=== PATIENT | male | born 2000 | race Caucasian/White ===

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

== ENCOUNTER 2021-04-22 17:21 | Emergency (ER) | payer OTHER | END 2021-04-22 18:30 | disposition left against medical advice (07) | LOC: ER1 17:21 | DX: Z53.21 Procedure and treatment not carried out due to patient leaving prior to being seen by health care provider (principal) | CPT/HCPCS: 93005 ==

== ENCOUNTER 2021-04-22 19:21 | Emergency (ER) | payer OTHER ==
[2021-04-22 20:35] LABS: HEMOGLOBIN 15.7 gm/dl (14.0-17.5); RED BLOOD COUNT 5.46 M/UL (4.20-5.50); WHITE BLOOD COUNT 7.1 K/UL (4.5-11.0)
[2021-04-22 20:57] LABS: BUN/CREATININE RATIO 14 (0-10)
== END 2021-04-22 22:30 | disposition home or self-care (01) ==
LOC: ER1 19:21
PROVIDERS: Physician Assistant
DX: R07.9 Chest pain, unspecified (principal); R10.9 Unspecified abdominal pain; R06.02 Shortness of breath; R11.2 Nausea with vomiting, unspecified; R19.7 Diarrhea, unspecified
CPT/HCPCS: 71045; 80053; 82550; 82553; 83874; 84484; 85025; 99285

== ENCOUNTER 2021-04-24 11:26 | Emergency (ER) | payer OTHER ==
[2021-04-24] MEDS ORDERED: VISTARIL 50 MG50 MG PO (13:51)
== END 2021-04-24 14:08 | disposition home or self-care (01) ==
LOC: ER1 11:26
DX: K05.10 Chronic gingivitis, plaque induced (principal); F41.9 Anxiety disorder, unspecified
CPT/HCPCS: 99282

== ENCOUNTER 2021-04-28 08:39 | Emergency (ER) | payer OTHER ==
[~2021-04-28 08:39] MED LIST: VISTARIL 50 MG50 MG PO
[2021-04-28 09:31] LABS: HEMOGLOBIN 16.1 gm/dl (14.0-17.5); RED BLOOD COUNT 5.34 M/UL (4.20-5.50); WHITE BLOOD COUNT 4.3 K/UL (4.5-11.0)
[2021-04-28 09:55] LABS: BUN/CREATININE RATIO 9 (0-10)
== END 2021-04-28 12:45 | disposition home or self-care (01) ==
LOC: ER1 08:39
PROVIDERS: Emergency Medicine
DX: I71.9 Aortic aneurysm of unspecified site, without rupture (principal); R06.00 Dyspnea, unspecified; R51.9 Headache, unspecified
CPT/HCPCS: 70450; 71045; 80053; 82550; 82553; 83874; 84439; 84443; 84484; 85025; 85379; 93005; 99285; Q9967

== ENCOUNTER 2021-04-30 13:51 | Emergency (ER) | payer OTHER ==
[2021-04-30 15:30] LABS: HEMOGLOBIN 14.9 gm/dl (14.0-17.5); RED BLOOD COUNT 5.23 M/UL (4.20-5.50)
[2021-04-30 15:43] LABS: WHITE BLOOD COUNT 10.4 K/UL (4.5-11.0)
[2021-04-30 15:46] LABS: BUN/CREATININE RATIO 14 (0-10)
== END 2021-04-30 17:34 | disposition home or self-care (01) ==
LOC: ER1 13:51
PROVIDERS: Physician Assistant Medical
DX: R07.2 Precordial pain (principal); R00.2 Palpitations; Z79.899 Other long term (current) drug therapy
CPT/HCPCS: 71045; 80053; 82550; 82553; 83874; 84484; 85025; 93005; 99285

== ENCOUNTER → 2021-05-01 | Outpatient (CLI) | payer OTHER ==
[2021-05-01 13:35] LABS: HEMOGLOBIN 15.1 gm/dl (14.0-17.5); RED BLOOD COUNT 5.11 M/UL (4.20-5.50)
[2021-05-01 13:47] LABS: WHITE BLOOD COUNT 4.5 K/UL (4.5-11.0)
[2021-05-01 14:07] LABS: BUN/CREATININE RATIO 11 (0-10)
[2021-05-02 08:14] LABS: THYROXINE (T4) 8.1 ug/dL (4.5-12.0)
== END ==
LOC: LAB 12:14
PROVIDERS: Physical Medicine & Rehabilitation
DX: Z13.220 Encounter for screening for lipoid disorders (principal); Z13.1 Encounter for screening for diabetes mellitus; R53.82 Chronic fatigue, unspecified; R20.2 Paresthesia of skin
CPT/HCPCS: 36415; 80053; 80061; 81001; 82607; 84436; 84443; 84480; 85025; 85652; 86140

== ENCOUNTER → 2021-05-03 | Outpatient (CLI) | payer OTHER | LOC: LAB 13:38 | DX: R07.9 Chest pain, unspecified (principal); R06.02 Shortness of breath; R53.82 Chronic fatigue, unspecified; R79.1 Abnormal coagulation profile | CPT/HCPCS: 36415; 82550; 85652; 86140; 87040 ==

== ENCOUNTER 2022-05-06 16:33 | Emergency (ER) | payer OTHER | END 2022-05-06 17:15 | disposition left against medical advice (07) | LOC: ER1 16:33 | DX: Z53.21 Procedure and treatment not carried out due to patient leaving prior to being seen by health care provider (principal) ==